=== PATIENT | male | born 1945 | race Caucasian/White ===

== ENCOUNTER → 2016-10-25 | Outpatient (CLI) | payer MEDICARE, BC | LOC: COL.RAD 14:36 | DX: S46.811A Strain of other muscles, fascia and tendons at shoulder and upper arm level, right arm, initial encounter (principal); M19.011 Primary osteoarthritis, right shoulder; M77.8 Other enthesopathies, not elsewhere classified ==

== ENCOUNTER → 2017-08-16 | Outpatient (CLI) | payer MEDICARE, BC | LOC: COL.LAB 16:11 | DX: Z01.812 Encounter for preprocedural laboratory examination (principal) ==

== ENCOUNTER 2023-09-21 21:56 | Observation (INO) | payer MEDICARE, BC ==
[~2023-09-21] VITALS: Ht 167.6 cm; Wt 82.9 kg
--- NOTE | 2023-09-21 21:50 | NUR ---
pt admitted to room 327 per EMS for appy, alert and oriented x1, up and ambulating in room, currently reports only minimal pain in abd, no N/V at this time. INT patent/secure in RFA. Dr Swann notified of pt's arrival. admission assessment, med rec and intake completed. IVF started @ 100 cc/hr. pt may have clear liquids until [address] Swann.
[2023-09-21 22:00] VITALS: BP_SYST 180
[2023-09-21 22:13] VITALS: BP 180/82; PULSE 77; TEMP 98.4
[2023-09-21] MEDS ORDERED: PRAVACHOL 40MG40 MG PO (22:14)
[2023-09-21] MEDS ORDERED: VOLTAREN 50MG T50 MG PO (22:15)
[2023-09-21] MEDS ORDERED: CENTRUM SILVER1 TAB PO (22:19)
[2023-09-21] MEDS ORDERED: NS 1,000 ML IV SCH (22:30)
[2023-09-21] MEDS ORDERED: Ondansetron 4 MG/2 ML VIAL IV PRN (22:30)
[2023-09-21] MEDS ORDERED: Morphine 4 MG/ML VIAL IV PRN (22:45)
[2023-09-21 23:56] VITALS: BP 162/94; PULSE 78; TEMP 98.3
[2023-09-22] VITALS (17 sets, daily range): BP systolic 116–172; BP diastolic 65–87; PULSE 65–84; TEMP 98.2–98.4
--- NOTE | 2023-09-22 07:20 | NUR ---
pt a&ox4 resting in bed watching tv. pt reports pain a 01/15 and requesting pain medication. morphine given per emar. fluids infusing into right forearm IV. consent and pre op checklist completed. pt denies needs at this time. call light in reach.
[2023-09-22] MEDS ORDERED: Rocuronium 50 MG/5 ML Multi-Dose VIAL ONE (07:50)
[2023-09-22] MEDS ORDERED: fentaNYL 50 MCG/ML 2 ML VIAL ONE ×2 (07:50→10:05)
[2023-09-22] MEDS ORDERED: Lidocaine PF 2% (20 MG/ML) 5 ML VIAL ONE (07:51)
[2023-09-22] MEDS ORDERED: NS 10 ML IV ONE (07:51)
[2023-09-22] MEDS ORDERED: dexAMETHasone 10 MG/ML VIAL ONE (07:51)
[2023-09-22] MEDS ORDERED: Ondansetron 4 MG/2 ML VIAL ONE (07:51)
--- NOTE | 2023-09-22 07:55 | NUR ---
pt off floor for procedure.
[2023-09-22] MEDS ORDERED: fentaNYL 50 MCG/ML 2 ML VIAL IV PRN (08:15)
[2023-09-22] MEDS ORDERED: Ondansetron 4 MG/2 ML VIAL IV PRN (08:15)
[2023-09-22] MEDS ORDERED: droPERidol 2.5 MG/ML 2 ML VIAL IV PRN (08:15)
[2023-09-22] MEDS ORDERED: LR 1,000 ML IV SCH (08:15)
[2023-09-22] MEDS ORDERED: hydrALAZINE 20 MG/ML 1 ML VIAL IV PRN (08:15)
[2023-09-22] MEDS ORDERED: HYDROmorphone 2 MG/1 ML VIAL IV PRN (08:15)
[2023-09-22] MEDS ORDERED: Ketorolac 30 MG/ML VIAL ONE (09:54)
--- NOTE | 2023-09-22 10:45 | NUR ---
pt back in room from surgery, a&ox4. x3 lap sites are cdi. vss.
[2023-09-22] MEDS ORDERED: Pravastatin 20 MG TAB PO SCH (21:00)
[2023-09-23] VITALS: BP_SYST 146
[2023-09-23 03:25] VITALS: BP 135/77; PULSE 85; TEMP 97.7
[2023-09-23 04:00] VITALS: BP_SYST 135
[2023-09-23 07:17] VITALS: BP 122/70; PULSE 88; TEMP 98.2
--- NOTE | 2023-09-23 08:23 | NUR ---
pt a&ox4 resting in bed waiting for breakfast. reports his pain has significantly improved since yesterday. abdominal incisions are cdi. pt is passing gas and urinating without difficulty. vss. assessment complete. scds to ble. INT to right forearm is patent. pt denies needs at this time. call light in reach.
[2023-09-23] MEDS ORDERED: AMOXICILLIN 8751 TAB PO (09:17)
[2023-09-23 09:24] VITALS: BP_SYST 122
--- NOTE | 2023-09-23 09:40 | NUR ---
SW met with patient to complete intake. Patient provides he lives in [place], [place] alone. Next of kin is Amarilis [phone]. Patient states he is independent with ADL's, does not utilize any forms of DME, PCP is Dr. Dixon, and pharmacy is [facility] out of [place]. Patient does not have anyone appointed as DPOA/HC and did not wish to appoint anyone at this time. Patient plan upon discharge is home. SW will continue to follow. Discharge plan: home
--- NOTE | 2023-09-23 09:55 | NUR ---
INT discontinued without difficulty. discharge instructions given to pt, all questions answered. pt waiting for ride.
--- NOTE | 2023-09-23 10:30 | NUR ---
pt escorted to personal vehicle by wheelchair.
== END 2023-09-23 10:30 | disposition home or self-care (01) ==
LOC: SURG 21:56
PROVIDERS: ADMIT Surgery
DX: K35.201 Acute appendicitis with generalized peritonitis, with perforation, without abscess (principal); Z87.891 Personal history of nicotine dependence
CPT/HCPCS: G0378; G0379; J0295; J0690; J1100; J1885; J2270; J2405; J2704; J3010; J7030